=== PATIENT | female | born 1995 | race Caucasian/White ===

== ENCOUNTER 2021-11-11 17:18 | Emergency (ER) | payer OTHER ==
[2021-11-11 18:00] LABS: BASOPHILS # (AUTO) 0.1 10^3/uL (0.0-0.1); BASOPHILS % (AUTO) 1.6 %; EOSINOPHILS # (AUTO) 0.5 10^3/uL (0.0-0.7); EOSINOPHILS % (AUTO) 5.5 %; HCT - HEMATOCRIT 40.4 % (37.0-47.0); HGB - HEMOGLOBIN 14.1 g/dL (12.0-16.0); LYMPHOCYTES # (AUTO) 3.5 10^3/uL (1.5-3.5); LYMPHOCYTES % (AUTO) 38.7 %; MEAN CORPUSCULAR HEMOGLOBIN 30.8 pg (27.0-31.0); MEAN CORPUSCULAR HGB CONC 34.9 g/dL (32.0-36.0); MEAN CORPUSCULAR VOLUME 88.2 fL (81.0-99.0); MEAN PLATELET VOLUME 10.9 fL (7.9-10.8); MONOCYTES # (AUTO) 0.6 10^3/uL (0.0-1.0); NEUTROPHILS # (AUTO) 4.2 10^3/uL (1.5-6.6); PLT - PLATELET COUNT 283 10^3/uL (130-450); RED BLOOD COUNT 4.58 10^6/uL (4.20-5.40); RED CELL DISTRIBUTION WIDTH 12.3 % (12.0-15.0); WHITE BLOOD COUNT 8.9 x10^3/uL (4.8-10.8)
[2021-11-11 18:02] LABS: BILIRUBIN,URINE NEGATIVE (NEGATIVE); GLUCOSE, URINE (UA) NEGATIVE (NEGATIVE); KETONES,URINE (UA) NEGATIVE (NEGATIVE); LEUKOCYTE ESTERASE, URINE NEGATIVE (NEGATIVE); NITRITE,URINE NEGATIVE (NEGATIVE); OCCULT BLOOD,URINE NEGATIVE (NEGATIVE); PROTEIN,URINE NEGATIVE (NEGATIVE); UROBILINOGEN,URINE 0.2 (NORMAL) E.U./dL (NORMAL)
[2021-11-11 18:06] LABS: CLARITY,URINE CLEAR (CLEAR); HCG UR QUAL NEGATIVE
--- NOTE | 2021-11-11 18:17 | ED Physician Documentation ---
History of Present Illness - Stated complaint Stated Complaint: NAUSEA,PELVIC PX - Chief complaint Chief Complaint: Abd Pain - Additonal information Additional information: 26-year-old female presents emergency department for evaluation of acute onset nausea and lower pelvic pain that began today. She reports a last menstrual cycle in April 2020. She is currently 11 months and is breast- feeding and has not resumed her cycles. She did have a positive home test in late September. Subsequently she began to have vaginal bleeding and then had a negative home test. She discussed this with her primary care provider who told her that she was having a miscarriage. There is no further work-up or imaging done. She had been progressing well until today when she developed the pain and nausea. No fevers, dysuria or urgency. G5, Review of Systems Constitutional: denies: Fever, Chills Eyes: reports: Reviewed and negative Nose: reports: Reviewed and negative Throat: reports: Reviewed and negative Cardiac: reports: Reviewed and negative Respiratory: reports: Reviewed and negative GI: reports: Abdominal Pain, Nausea. denies: Vomiting : denies: Dysuria, Frequency, Hesitancy Skin: reports: Reviewed and negative Musculoskeletal: reports: Reviewed and negative Neurologic: reports: Reviewed and negative PD PAST MEDICAL HISTORY - Present Medications Home Medications: Ambulatory Orders Medication Instructions Recorded Confirmed Sertraline [Zoloft] 25 mg PO DAILY 11/11/21 11/11/21 - Allergies Allergies/Adverse Reactions: Allergies Allergy/AdvReac Type Severity Reaction Status Date / Time amoxicillin Allergy Hives Verified 11/11/21 17:41 azithromycin Allergy Hives Verified 11/11/21 17:41 clindamycin Allergy Hives Verified 11/11/21 17:41 Penicillins Allergy Hives Verified 11/11/21 17:41 PD ED PE NORMAL - General General: Alert and oriented X 3, No acute distress, Well developed/nourished - HEENT HEENT: Atraumatic, Ears normal - Neck Neck: Supple, no meningeal sign, No JVD - Cardiac Cardiac: RRR, No murmur, No gallop - Respiratory Respiratory: No respiratory distress, Clear bilaterally - Abdomen Abdomen: Normal bowel sounds, Soft. No: Non tender (I was unable to elicit any tenderness on exam. 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 Eye Opening: Spontaneous Motor: Obeys Commands Verbal: Oriented GCS Score: 15 - Psych Psych: Normal mood Results - Vitals Vitals: Vital Signs - 24 hr 11/11/21 11/11/21 17:30 19:24 Temperature 36.4 C L 36.5 C Heart Rate 75 70 Respiratory 16 16 Rate Blood Pressure 119/69 115/66 O2 Saturation 98 99 Oxygen O2 Source Room air - Labs Labs: Laboratory Tests 11/11/21 11/11/21 11/11/21 17:51 17:55 17:55 WBC 8.9 RBC 4.58 Hgb 14.1 Hct 40.4 MCV 88.2 MCH 30.8 MCHC 34.9 RDW 12.3 Plt Count 283 MPV 10.9 H Neut # (Auto) 4.2 Lymph # (Auto) 3.5 [place] # (Auto) 0.6 Eos # (Auto) 0.5 Baso # (Auto) 0.1 Absolute Nucleated RBC 0.00 Nucleated RBC % 0.0 Sodium 138 Potassium 3.7 Chloride 101 Carbon Dioxide 25 Anion Gap 12.0 BUN 11 Creatinine 0.6 Estimated GFR (MDRD) 122 Glucose 124 H Calcium 9.5 Total Bilirubin 0.2 AST 19 ALT 18 Alkaline Phosphatase 77 Total Protein 7.7 Albumin 4.7 Globulin 3.0 Albumin/Globulin Ratio 1.6 Lipase 30 HCG, Quant Urine Color YELLOW Urine Clarity CLEAR Urine pH 6.0 Ur Specific [place] 1.010 Urine Protein NEGATIVE Urine Glucose (UA) NEGATIVE Urine Ketones NEGATIVE Urine Occult Blood NEGATIVE Urine Nitrite NEGATIVE Urine Bilirubin NEGATIVE Urine Urobilinogen 0.2 (NORMAL) Ur Leukocyte Esterase NEGATIVE Ur Microscopic Review NOT INDICATED Urine Culture Comments NOT INDICATED Urine HCG, Qual NEGATIVE 11/11/21 17:55 WBC RBC Hgb Hct MCV MCH MCHC RDW Plt Count MPV Neut # (Auto) Lymph # (Auto) [place] # (Auto) Eos # (Auto) Baso # (Auto) Absolute Nucleated RBC Nucleated RBC % Sodium Potassium Chloride Carbon Dioxide Anion Gap BUN Creatinine Estimated GFR (MDRD) Glucose Calcium Total Bilirubin AST ALT Alkaline Phosphatase Total Protein Albumin Globulin Albumin/Globulin Ratio Lipase HCG, Quant < 0.60 Urine Color Urine Clarity Urine pH Ur Specific [place] Urine Protein Urine Glucose (UA) Urine Ketones Urine Occult Blood Urine Nitrite Urine Bilirubin Urine Urobilinogen Ur Leukocyte Esterase Ur Microscopic Review Urine Culture Comments Urine HCG, Qual - Rads (name of study) pelvic US Radiology: Final report received (Unremarkable exam. No evidence of torsion. Arterial venous flow are identified.) PD MEDICAL DECISION MAKING - ED course Complexity details: reviewed results, re-evaluated patient, considered differential, d/w patient, d/w family ED course: Well-appearing 26-year-old female presents emergency department for evaluation of sudden onset lower pelvic pain. She was cooking in her kitchen when the pain developed. She had no fevers but did endorse feeling nauseated. She reports that in late September she had what she was told was a miscarriage. She had a positive home test then began having vaginal bleeding. Her doctor told her she was miscarrying but no imaging or labs were done to confirm. Here in the emergency department screening labs electrolytes and hCG are negative. An ultrasound was completed. There is nothing to suggest RPOC or ovarian torsion. At the bedside I was unable to elicit any abdominal tenderness. Given lack of fevers leukocytosis or tenderness my suspicion for acute appendicitis is rather low. No hematuria CVA or flank pain therefore I have lower suspicion for renal or ureter colic. Patient is discharged home in stable condition. Emergent return precautions were discussed for worsening symptoms Departure - Departure Disposition: 01 Home, Self Care Clinical Impression: Lower abdominal pain Condition: Stable Record reviewed to determine appropriate education?: Yes Instructions: ED Abdominal Pain Cause Unkn Fem Ch Comments: Lizzette bailey are seen today in the emergency department for sudden pain in your lower abdomen/pelvic region. Today in the emergency department your screening labs are normal. You do not have an elevated white blood cell count, your electrolytes are normal and you are not today. Because you reported a miscarriage in late September we did do a pelvic ultrasound. The ultrasound was essentially normal. There is no retained products of conception from your miscarriage. Your ovaries are normal without findings to suggest torsion or twisting of the ovaries. I am as you were free of pain at the bedside my suspicion for acute appendicitis is rather low. Your urine showed no signs of infection and there was no blood in the urine. As we discussed I also did not feel that you likely had ureter or renal colic. You can continue to take your usual medications. If you develop sudden severe pain, have uncontrolled vomiting or fevers then please return to the emergency department. At that time we should consider a CT scan
[2021-11-11 18:18] LABS: ALBUMIN 4.7 g/dL (3.2-5.5); ALBUMIN/GLOBULIN RATIO 1.6 (1.0-2.2); BILIRUBIN,TOTAL 0.2 mg/dL (0.2-1.0); CALCIUM 9.5 mg/dL (8.5-10.3); CREATININE 0.6 mg/dL (0.4-1.0); POTASSIUM 3.7 mmol/L (3.5-5.0); TOTAL PROTEIN 7.7 g/dL (6.7-8.2)
--- NOTE | 2021-11-11 19:07 | Ultrasound Report ---
PROCEDURE: Pelvic w/Transvag+Doppler Comp INDICATIONS: miscarriage 10/30 TECHNIQUE: Real-time scanning was performed of the pelvic organs, with image documentation. Additional endovagi nal scanning was necessary due to incomplete visualization of the adnexal and endometrial structures by transabdominal scanning. Doppler interrogation was performed of the ovaries bilaterally. COMPARISON: None. FINDINGS: No pathologic free abdominal or pelvic fluid. Uterus: Uterus is normal in size at 6.6 x 2.9 x 5.4 cm. The endometrium measures 7 mm in combined t hickness. Ovaries: Right ovary measures 3.5 x 1.4 x 2.6 cm, by 6.5 cc. Left ovary measures 1.8 x 1.0 x 2.5 cm, volume 2.4 cc. Normal appearing arterial and venous waveforms are confirmed to each ovary.] IMPRESSION: Unremarkable exam. No evidence of torsion. Arterial venous flow are identified. Reviewed by: Elaine Lan MD on 11/11/2021 7:05 PM PDT Approved by: Elaine Lan MD on 11/11/2021 7:05 PM PDT Station ID: [id number]
[2021-11-11 19:25] VITALS: BP 115/66
== END 2021-11-11 19:59 | disposition home or self-care (01) ==
LOC: ED 17:18
DX: R10.30 Lower abdominal pain, unspecified (principal); R11.0 Nausea
CPT/HCPCS: 36415; 80053; 81001; 81003; 81025; 83690; 84702; 85025; 87086; 93975; 99282; 99284

== ENCOUNTER 2022-12-20 17:30 | Outpatient (CLI) | payer OTHER ==
[2022-12-20 20:52] LABS: BASOPHILS # (AUTO) 0.1 10^3/uL (0.0-0.1); BASOPHILS % (AUTO) 1.6 %; EOSINOPHILS # (AUTO) 0.6 10^3/uL (0.0-0.7); EOSINOPHILS % (AUTO) 6.8 %; HCT - HEMATOCRIT 42.2 % (37.0-47.0); LYMPHOCYTES % (AUTO) 36.9 %; MEAN CORPUSCULAR HEMOGLOBIN 29.4 pg (27.0-31.0); MEAN CORPUSCULAR HGB CONC 33.2 g/dL (32.0-36.0); MEAN CORPUSCULAR VOLUME 88.5 fL (81.0-99.0); MONOCYTES # (AUTO) 0.5 10^3/uL (0.0-1.0); MONOCYTES % (AUTO) 6.7 %; NEUTROPHILS # (AUTO) 3.9 10^3/uL (1.5-6.6); NEUTROPHILS % (AUTO) 47.8 %; PLT - PLATELET COUNT 275 10^3/uL (130-450); RED BLOOD COUNT 4.77 10^6/uL (4.20-5.40); RED CELL DISTRIBUTION WIDTH 13.1 % (12.0-15.0); WHITE BLOOD COUNT 8.1 x10^3/uL (4.8-10.8)
[2022-12-20 20:57] LABS: ALBUMIN/GLOBULIN RATIO 1.6 (1.0-2.2); BILIRUBIN,TOTAL 0.4 mg/dL (0.2-1.0); CREATININE 0.9 mg/dL (0.6-1.3); MAGNESIUM 1.9 mg/dL (1.7-2.3); POTASSIUM 3.9 mmol/L (3.5-4.5); TOTAL PROTEIN 8.1 g/dL (6.4-8.9)
[2022-12-20 21:17] LABS: THYROID STIMULATING HORMONE 3.4 uIU/mL (0.34-5.60)
== END 2022-12-20 17:45 | disposition home or self-care (01) ==
LOC: LAB.N 17:30
PROVIDERS: ATTEND Physician Assistant Medical
DX: R53.83 Other fatigue (principal)
CPT/HCPCS: 36415; 80053; 83735; 84443; 85025

== ENCOUNTER 2023-06-24 20:21 | Emergency (ER) | payer OTHER ==
--- NOTE | 2023-06-24 21:39 | XRAY Report ---
PROCEDURE: Chest 1V INDICATIONS: chest pain TECHNIQUE: One view of the chest was acquired. COMPARISON: None. FINDINGS: Surgical changes and devices: None. Lungs and pleura: No pleural effusions or pneumothorax. Lungs are clear. Mediastinum: Mediastinal contours appear normal. Heart size is normal. Bones and chest wall: No suspicious bony lesions. Overlying soft tissues appear unremarkable. IMPRESSION: No acute cardiopulmonary process. No focal airspace disease. Reviewed by: Jameson Santana MD on 06/24/2023 9:37 PM [facility] Approved by: Jameson Santana MD on 06/24/2023 9:37 PM [facility] Station ID: [id number]
[2023-06-24 21:40] LABS: BASOPHILS # (AUTO) 0.1 10^3/uL (0.0-0.1); BASOPHILS % (AUTO) 1.3 %; EOSINOPHILS # (AUTO) 0.6 10^3/uL (0.0-0.7); EOSINOPHILS % (AUTO) 5.8 %; HCT - HEMATOCRIT 39.7 % (37.0-47.0); HGB - HEMOGLOBIN 13.3 g/dL (12.0-16.0); LYMPHOCYTES # (AUTO) 3.9 10^3/uL (1.5-3.5); LYMPHOCYTES % (AUTO) 35.7 %; MEAN CORPUSCULAR HEMOGLOBIN 29.4 pg (27.0-31.0); MEAN CORPUSCULAR HGB CONC 33.5 g/dL (32.0-36.0); MEAN CORPUSCULAR VOLUME 87.8 fL (81.0-99.0); MEAN PLATELET VOLUME 10.5 fL (7.9-10.8); MONOCYTES # (AUTO) 0.7 10^3/uL (0.0-1.0); MONOCYTES % (AUTO) 6.5 %; NEUTROPHILS # (AUTO) 5.5 10^3/uL (1.5-6.6); NEUTROPHILS % (AUTO) 50.5 %; PLT - PLATELET COUNT 301 10^3/uL (130-450); RED BLOOD COUNT 4.52 10^6/uL (4.20-5.40); RED CELL DISTRIBUTION WIDTH 12.4 % (12.0-15.0); WHITE BLOOD COUNT 10.8 x10^3/uL (4.8-10.8)
[2023-06-24 21:56] LABS: ALBUMIN 4.1 g/dL (3.2-5.5); ALBUMIN/GLOBULIN RATIO 1.4 (1.0-2.2); BILIRUBIN,TOTAL 0.2 mg/dL (0.2-1.0); CALCIUM 9.4 mg/dL (8.5-10.3); CREATININE 0.7 mg/dL (0.6-1.3); POTASSIUM 3.6 mmol/L (3.5-4.5)
[2023-06-24 22:03] LABS: BILIRUBIN,URINE NEGATIVE (NEGATIVE); GLUCOSE, URINE (UA) NEGATIVE (NEGATIVE); KETONES,URINE (UA) NEGATIVE (NEGATIVE); LEUKOCYTE ESTERASE, URINE NEGATIVE (NEGATIVE); NITRITE,URINE NEGATIVE (NEGATIVE); OCCULT BLOOD,URINE NEGATIVE (NEGATIVE); PH,URINE 7.5 PH (5.0-7.5); PROTEIN,URINE NEGATIVE (NEGATIVE); UROBILINOGEN,URINE 0.2 (NORMAL) E.U./dL (NORMAL)
[2023-06-24 22:05] LABS: CLARITY,URINE CLEAR (CLEAR); HCG UR QUAL NEGATIVE
--- NOTE | 2023-06-24 22:09 | ED Physician Documentation ---
History of Present Illness - Stated complaint Stated Complaint: HIGH BP/BENITEZ/CHEST PX - Chief complaint Chief Complaint: Cardiac - History obtained from History obtained from: Patient - Additonal information Additional information: 27-year-old female with history of anxiety presents by private vehicle from home for 2 to 3 hours of chest tightness, clammy sensation, headache, nausea. Patient was sitting at home when symptoms began and have been persistent since onset. Nothing seems to make it better or worse. Patient states that she took her blood pressure when symptoms began and it was 130 systolic, which is high for her. Due to her history of preeclampsia patient was concerned and decided to present for evaluation. Chest tightness and nausea are still present, headache has somewhat abated. Denies shortness of breath, blurred vision, worst headache of life, abdominal pain, dysuria, hematuria, any other complaints at this time.Uncertain of possibility of . Review of Systems Constitutional: denies: Fever, Chills Cardiac: reports: Chest pain / pressure. denies: Palpitations, Calf pain Respiratory: denies: Dyspnea, Cough, Wheezing GI: reports: Nausea. 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 - Present Medications Home Medications: Ambulatory Orders Medication Instructions Recorded Confirmed ARIPiprazole [Abilify Mycite] 2 mg PO DAILY 06/24/23 06/24/23 - Allergies Allergies/Adverse Reactions: Allergies Allergy/AdvReac Type Severity Reaction Status Date / Time amoxicillin Allergy Hives Verified 06/24/23 20:48 azithromycin Allergy Hives Verified 06/24/23 20:48 clindamycin Allergy Hives Verified 06/24/23 20:48 Penicillins Allergy Hives Verified 06/24/23 20:48 - Social History Does the pt smoke?: No Smoking Status: Never smoker Does the pt drink ETOH?: Yes Does the pt have substance abuse?: No - Immunizations Immunizations are current?: Yes - POLST Patient has POLST: No PD ED PE NORMAL - Vitals Vital signs reviewed: Yes - General General: Alert and oriented X 3, No acute distress, Well developed/nourished - Cardiac Cardiac: RRR, Strong equal pulses - Respiratory Respiratory: No respiratory distress, Clear bilaterally - Abdomen Abdomen: Soft, Non tender, Non distended - Derm Derm: Normal color, Warm and dry, No rash - Extremities Extremities: No deformity, No tenderness to palpate, Normal ROM s pain, No edema - Neuro Neuro: Alert and oriented X 3, 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 Relevant findings are: Rate: Rate (enter#) (99) Rhythm: NSR [place]: Normal Intervals: Normal TN QRS: Normal Ischemia: Normal ST segments - Labs Labs: Laboratory Tests 06/24/23 06/24/23 06/24/23 21:33 21:33 21:33 WBC 10.8 RBC 4.52 Hgb 13.3 Hct 39.7 MCV 87.8 MCH 29.4 MCHC 33.5 RDW 12.4 Plt Count 301 MPV 10.5 Neut # (Auto) 5.5 Lymph # (Auto) 3.9 H [place] # (Auto) 0.7 Eos # (Auto) 0.6 Baso # (Auto) 0.1 Absolute Nucleated RBC 0.00 Nucleated RBC % 0.0 Sodium 136 Potassium 3.6 Chloride 104 Carbon Dioxide 24 Anion Gap 8.0 BUN 10 Creatinine 0.7 Estimated GFR (MDRD) 101 Glucose 162 H Calcium 9.4 Total Bilirubin 0.2 AST 12 ALT 13 Alkaline Phosphatase 67 Troponin I High Sens < 2.3 L Total Protein 7.0 Albumin 4.1 Globulin 2.9 Albumin/Globulin Ratio 1.4 Urine Color Urine Clarity Urine pH Ur Specific [place] Urine Protein Urine Glucose (UA) Urine Ketones Urine Occult Blood Urine Nitrite Urine Bilirubin Urine Urobilinogen Ur Leukocyte Esterase Ur Microscopic Review Urine Culture Comments Urine HCG, Qual 06/24/23 21:53 WBC RBC Hgb Hct MCV MCH MCHC RDW Plt Count MPV Neut # (Auto) Lymph # (Auto) [place] # (Auto) Eos # (Auto) Baso # (Auto) Absolute Nucleated RBC Nucleated RBC % Sodium Potassium Chloride Carbon Dioxide Anion Gap BUN Creatinine Estimated GFR (MDRD) Glucose Calcium Total Bilirubin AST ALT Alkaline Phosphatase Troponin I High Sens Total Protein Albumin Globulin Albumin/Globulin Ratio Urine Color YELLOW Urine Clarity CLEAR Urine pH 7.5 Ur Specific [place] 1.015 Urine Protein NEGATIVE Urine Glucose (UA) NEGATIVE Urine Ketones NEGATIVE Urine Occult Blood NEGATIVE Urine Nitrite NEGATIVE Urine Bilirubin NEGATIVE Urine Urobilinogen 0.2 (NORMAL) Ur Leukocyte Esterase NEGATIVE Ur Microscopic Review NOT INDICATED Urine Culture Comments NOT INDICATED Urine HCG, Qual NEGATIVE PD Medical Decision Making - ED course Complexity details: reviewed results, re-evaluated patient, considered differential, d/w patient ED course: Well-appearing patient with 2 to 3 hours of symptoms. EKG is normal sinus rhythm without concerning findings. Troponin undetectable, electrolytes within normal limits, no leukocytosis, chest x-ray unremarkable. Patient resting comfortably in bed, states she had an episode where her headache, nausea, chest tightness recurred, however it is improved. Uncertain etiology of patient's symptoms. PCP follow-up advised. Departure - Departure Disposition: 01 Home, Self Care Clinical Impression: Chest tightness, Nausea Condition: Stable Instructions: ED Chest Pain Atypical Unkn Cause Comments: Your labs and X ray imaging was normal today. There is no evidence of heart attack, pneumonia, or urinary infection. You may continue to monitor your vitals at home. I recommend following up with your primary care physician. Forms: PCP List Discharge Date/Time: 06/24/23 22:32
[2023-06-24] MEDS ORDERED: ONDANSETRON ODT 4 MG TABLET TL STA (22:25)
[2023-06-24 22:39] VITALS: BP 122/76; O2SAT 98
== END 2023-06-24 22:32 | disposition home or self-care (01) ==
LOC: ED 20:21
DX: R07.89 Other chest pain (principal); R51.9 Headache, unspecified; R11.0 Nausea
CPT/HCPCS: 36415; 80053; 81001; 81003; 81025; 84484; 85025; 87086; 93005; 99283; 99284

== ENCOUNTER 2023-10-21 15:04 | Outpatient (CLI) | payer OTHER ==
--- NOTE | 2023-10-21 17:56 | SLEEP CARE CONSULTATION ---
Information from patient questionnaire entered by Tiana Churchill. I have reviewed and concur with the information entered by Tiana Churhcill. This document represents the service I personally performed and the decisions made by me, Lexus Edge MD, [facility]. History of Present Illness Service Date and Time: 10/21/2023 1504 Reason for Visit: New patient Chief Complaint: reports: Insomnia, Unrefreshed sleep, Snoring, Excessive daytime sleepiness, Fatigue Date of Onset: 2YRS Usual bedtime: 2030 Time it takes to fall asleep: 1-2 Snores at night: Yes Observed to quit breathing while asleep: No Sleeps alone due to snoring: No Number of times waking at night: 2 Reasons for waking at night: reports: Bathroom Toss, Turn, or Twitch while sleeping: Yes Recalls having dreams: Yes Usually gets out of bed at: 0600 Feels refreshed in the morning: No Morning headache: Yes Sleepy or fatigued during the day: Yes Ever fallen asleep while driving: Yes Dreams during day naps: No Prior sleep studies: No Additional HPI information: I have the pleasure of seeing Ms. Joyner today regarding the possibility of her having obstructive sleep apnea. As you know, she is a 28-year-old lady who complains of insomnia, fatigue, and excessive daytime sleepiness. The patient tells me that she normally goes to bed around 8:30 pm, and it takes her approximately 1 2 hours to fall asleep. She has been told that she snores loudly and irregularly at night. She has never been observed to stop breathing in her sleep. Her sleeps in the same bed. He wears a CPAP. She can recall waking up on the average of 2 times during the night. Most of the time she wakes up because of having to use the bathroom. She has awakened occasionally because of her own snoring, choking, and having to gasp for air. There is a lot of tossing and turning in her sleep. No somniloquy (sleep talking) or somnambulism (sleep walking). Generally, she can recall having dreams. In the morning she usually gets up out of the bed around 6 a.m. not feeling refreshed nor rested. She usually has a morning headache that goes away in about 2 hours. During the day she complains of feeling sleepy and fatigued. Her score on [place] Sleepiness Scale is 15 out of 24. She has fallen asleep while driving and has gone out of the andre. She usually does not take naps during the day. She reports having sleep paralysis. She complains of restless leg syndrome. She reports having impaired concentration during the day. 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 Patient is and lives in [place]. Have you smoked in the past 12 months: No Alcohol use: Yes Alcohol amount and frequency: 1 VERY LITTLE Caffeine use: Yes Caffeine amount and frequency: 3-4 CANS EVERYDAY Family History Family history of sleep disordered breathing: Yes Family Hx Sleep Apnea: Mother: Snoring, Father: Snoring Allergies and Home Medications Known drug allergies: No Drug allergies reviewed: Yes Home medication list reviewed: Yes Allergy and home medication list: Allergies amoxicillin Allergy (Verified 10/21/23 08:09) Hives azithromycin Allergy (Verified 10/21/23 08:09) Hives clindamycin Allergy (Verified 10/21/23 08:09) Hives Penicillins Allergy (Verified 10/21/23 08:09) Hives Review of Systems Weight gain over past 5 years: 40 Cardiovascular: reports: palpitations, chest pain, irregular heart rate or pulse Respiratory: denies: shortness of breath, wheeze, sputum production, chronic cough, other Gastrointestinal: reports: heartburn Urinary: denies: incontinence, frequency, urgency, impotence, other Neurological: denies: headaches, seizure, head trauma, disorientation, speech dysfunction, gait or balance problems, fainting or unconsciousness, other Psychiatric: reports: anxiety, depression Ear/Nose/Throat: reports: wisdom teeth removed Endocrine: reports: sluggishness, too hot or cold Musculoskeletal: denies: joint pain, neck pain, back pain, joint swelling, muscle pain or cramping, mobility problems, other Immunologic: reports: sneezing, itching Physical Exam Vital signs obtained and entered by: TIANA Lopez MA Blood Pressure: 124/76 (RIGHT ARM) Cuff size: regular Heart Rate: 85 O2 Saturation: 96 Height: 5 ft Weight: 158 lb 3.2 oz Body Mass Index: 30.9 BMI Classification: Obese Neck circumference: 13.5 Mood/affect: Normal HEENT: No craniofacial malformation Nostrils: partially obstructed Turbinates: normal Septum: deviated right Mouth and throat: narrow oropharynx Soft palate: long Hard palate: normal Uvula: normal Uvula visualization: 25% Mallampati Class III Tonsils: small Chin and jaw: normal size and position Neck: normal w/o lymphadenopathy or thyromegaly Heart: regular rate and rhythm Lungs: clear bilaterally Extremities: no edema or clubbing Neurologic: intact Impression and Plan IMPRESSION: 1. Suspected sleep apnea, based on loud snoring, unrefreshed sleep, morning headache, and daytime hypersomnolence. Narrow oropharynx and obesity are common predisposing factors for obstructive sleep apnea-hypopnea syndrome. I recommend proceeding to polysomnography to confirm the diagnosis and to assess severity. If she has significant sleep disordered breathing, a manual CPAP titration study will also be performed to find the optimal treatment pressure. I informed the patient of what the sleep studies involve and after some discussion, she agreed to proceed. 2. Insomnia, due to excessive time spent in bed of 9.5 hours in bed each night. The patient also sleeps in the recliner prior to going to bed. She was advised to delay her bedtime until 10 pm which is the same time her goes to bed. She is to avoid sleeping outside the bedroom. Plan: 1. Schedule polysomnography +/- manual CPAP titration study and return in 1 to 2 weeks after the study to discuss result and initiate therapy. 2. Avoid long distance driving or when feeling sleepy. 3. Avoid alcohol, sedative and muscle relaxant around bedtime. 4. Attempt to lose weight. 5. Maintain a regular wake up time and spend no more than 8 hours in bed at night. Avoid naps. Follow up with Sleep Care in: 1-2 months Visit Type: In Office Time Spent with Patient (minutes): 15 Provider Statement: I spent 100% of the Face to Face Visit with the patient with greater than 50% spent counseling the patient and coordination of care.
[2023-10-21 18:05] VITALS: BP 124/76; O2SAT 96
== END 2023-10-21 15:05 | disposition home or self-care (01) ==
LOC: SC 15:04
PROVIDERS: ATTEND Internal Medicine Pulmonary Disease
DX: G47.00 Insomnia, unspecified (principal); R06.83 Snoring; G47.10 Hypersomnia, unspecified; R53.83 Other fatigue; E66.9 Obesity, unspecified; Z68.30 Body mass index [BMI] 30.0-30.9, adult; R51.9 Headache, unspecified; F32.A Depression, unspecified
CPT/HCPCS: 99202; 99212

== ENCOUNTER 2023-11-02 20:46 | Outpatient (CLI) | payer OTHER | END 2023-11-02 20:47 | disposition home or self-care (01) | LOC: SC 20:46 | PROVIDERS: ATTEND Internal Medicine Pulmonary Disease | DX: G47.33 Obstructive sleep apnea (adult) (pediatric) (principal); E66.9 Obesity, unspecified; Z68.30 Body mass index [BMI] 30.0-30.9, adult | CPT/HCPCS: 95810 ==

== ENCOUNTER 2023-11-14 09:04 | Outpatient (CLI) | payer OTHER ==
--- NOTE | 2023-11-14 09:39 | Sleep Patient Instructions ---
Sleep Center Visit Summary - Patient Visit Information Reason for Visit: Sleep study follow-up - Patient Instructions Instructions Attached: CPAP Additional Instructions: You are being started on CPAP therapy with pressure setting at 4-15 cmH2O. You will need to call the sleep care office to set up your follow up once you have your CPAP machine to check compliance and response to therapy at that time. You may call the office with any concerns about pressure feeling too low or too much for adjustment, if needed. You should contact DME supplier for any questions or concerns about mask or equipment. Please call office to schedule a follow up appointment in the sleep care office one month after obtaining new device. - Clinic Information Contact: [facility] [address] [place] [address] [email or web address] T: [phone]
--- NOTE | 2023-11-14 09:41 | SLEEP CARE CONSULTATION ---
Information from patient questionnaire entered by Tiana Churchill. I have reviewed and concur with the information entered by Tiana Churchill. This document represents the service I personally performed and the decisions made by , Seda Lopez ARNP. History of Present Illness Service Date and Time: 11/14/2023 09 Initial [place] Sleepiness Scale score: 15 (10/21/23) Current [place] Sleepiness Scale score: 16 (11/14/23) Additional HPI information: [facility] [place] returns for follow up and results of the recently performed polysomnography. The sleep study done on 11/02/23 showed mild obstructive sleep apnea with an average AHI of 8.5 and lidia oxygen saturation of 82%. I explained the pathophysiology behind obstructive sleep apnea. We then spent quite a bit of time discussing different treatment options. For mild obstructive sleep apnea, surgery and oral appliance are alternatives to nasal CPAP therapy but in moderate or severe cases, nasal CPAP is the most effective and reliable treatment. Because apnea is primarily in supine position, then positional management therapy could be effective. Methods discussed such as positioning with pillows, using a T-shirt with tennis balls in the back or commercial products that have a pillow format on back to prevent supine sleep. I reviewed the impact of weight changes on sleep apnea and strongly recommended losing weight. After some discussion, the patient opted to go with the nasal CPAP therapy. Nasal autoCPAP set at 4-15 cmH20 will be ordered with rationale explained. A manual titration study will be ordered if unable to find optimal pressure with office adjustmen ts. I explained how CPAP machine works and what to expect when using the machine. Using CPAP every night in order to get used to it was emphasized. Patient advised to put CPAP mask on before getting into bed so as not to fall asleep without CPAP. To assist acclimation to CPAP use, it could also be used for a short time during day while reading or watching TV. The patient was instructed to call the CPAP supplier to discuss any mechanical problem that may occur. If the mask given is uncomfortable or is difficult to keep on through the night even with adjustment, contact the CPAP supplier as many will replace with another mask style if notified before 30 days. If snoring or perceives is not getting enough air or too much air from the machine, notify this office. Patient does not drink alcohol. Patient was cautioned about risks of drowsy driving until sleepiness symptoms resolve. Sleep Study - Results Type of Sleep Study: Polysomnography (COMPLETED 11/02/23) Prior sleep studies: No Polysomnography/Home Sleep Study results: IMPRESSION: The quality of the study is good. The patient had normal sleep efficiency. The sleep architecture was also normal. Respiratory monitoring showed mild obstructive sleep apnea- hypopnea (AHI = 8.5) associated with oxyhemoglobin desaturation and mild hypoxia (lidia oxygen saturation of 82%) but not sleep fragmentation. The respiratory events occurred predominantly during supine sleep (supine AHI = 11.5; non-supine = 5.78). Snore was light in intensity. There was no significant periodic leg movement of sleep. Cardiac rhythm was normal sinus rhythm without significant arrhythmia. No abnormal behavior (parasomnia) observed during the night. Allergies and Home Medications Known drug allergies: Yes (as listed) Drug allergies reviewed: Yes Home medication list reviewed: Yes (no changes) Allergy and home medication list: Allergies amoxicillin Allergy (Verified 10/21/23 15:24) Hives azithromycin Allergy (Verified 10/21/23 15:24) Hives clindamycin Allergy (Verified 10/21/23 15:24) Hives Penicillins Allergy (Verified 10/21/23 15:24) Hives Review of Systems Review of systems same as previous: Yes (NO CHANGE) Physical Exam Vital signs obtained and entered by: TIANA Lopez MA Blood Pressure: 129/77 (RIGHT ARM) Cuff size: regular Heart Rate: 81 O2 Saturation: 96 Height: 5 ft Weight: 162 lb 3.2 oz Body Mass Index: 31.6 BMI Classification: Obese Impression and Plan 1. Obstructive Sleep Apnea-Hypopnea Syndrome, mild, with lowest oxygen saturation of 82%. Obviously this is the cause of the patients symptoms of unrefreshed sleep, and excessive daytime sleepiness. Positive pressure therapy could benefit fibromyalgia, anxiety and depression. As mentioned above, the patient will be started on nasal autoCPAP therapy with pressure set at 4-15 cmH2 O. A manual titration study will be completed if unable to find optimal treatment pressure with office adjustments. Compliance guidelines also reviewed. A copy of compliance guidelines will be given for reference at check out. Because the apnea is more severe supine, I instructed to avoid sleeping supine using pillow positioning until able to start CPAP use. 2. Hypoxemia, mild, with a lidia oxygen saturation of 82% and 4.9 minutes spent under 90%. The baseline oxygen saturation was normal with an average oxygen saturation of 92%. 3. Obesity, unspecified. Currently patients BMI is 31.6. Obesity increases the risk of apnea, CPAP pressure requirements and overall health risks especially cardiovascular and diabetes. Thus patient is advised to lose weight. * Nasal auto CPAP therapy, pressure at 4-15 cm H2O. * Attempt to lose weight. * Avoid alcohol consumption near bedtime. * Avoid supine sleep until using CPAP. * The patient is again cautioned about driving until sleepiness completely resolves. * Return one month after CPAP obtained. I will assess response to therapy and compliance at that time. Counseling Topics: Sleeping position, Weight loss health impact Prescriptions: Auto CPAP Plan: start cpap and compliance followup Visit Type: In Office Time Spent with Patient (minutes): 20 Provider Statement: I spent 100% of the Face to Face Visit with the patient with greater than 50% spent counseling the patient and coordination of care.
[2023-11-14 09:45] VITALS: BP 129/77; O2SAT 96
== END 2023-11-14 09:05 | disposition home or self-care (01) ==
LOC: SC 09:04
PROVIDERS: ATTEND Nurse Practitioner Family
DX: G47.33 Obstructive sleep apnea (adult) (pediatric) (principal); E66.9 Obesity, unspecified; Z68.31 Body mass index [BMI] 31.0-31.9, adult
CPT/HCPCS: 99212; 99213

== ENCOUNTER 2023-12-26 08:00 | Outpatient (CLI) | payer OTHER | END 2023-12-26 23:59 | disposition home or self-care (01) | LOC: LAB 08:00 | PROVIDERS: ATTEND Emergency Medicine | DX: N12 Tubulo-interstitial nephritis, not specified as acute or chronic (principal) | CPT/HCPCS: 87086 ==

== ENCOUNTER 2024-01-30 07:34 | Outpatient (CLI) | payer OTHER ==
[2024-01-30 08:11] LABS: BASOPHILS % (AUTO) 1.5 %; EOSINOPHILS % (AUTO) 5.4 %; HCT - HEMATOCRIT 42.9 % (37.0-47.0); HGB - HEMOGLOBIN 14.7 g/dL (12.0-16.0); LYMPHOCYTES % (AUTO) 30.6 %; MEAN CORPUSCULAR HEMOGLOBIN 30.1 pg (27.0-31.0); MEAN CORPUSCULAR HGB CONC 34.3 g/dL (32.0-36.0); MEAN CORPUSCULAR VOLUME 87.7 fL (81.0-99.0); MEAN PLATELET VOLUME 10.9 fL (7.9-10.8); MONOCYTES % (AUTO) 6.2 %; NEUTROPHILS % (AUTO) 56.1 %; PLT - PLATELET COUNT 285 10^3/uL (130-450); RED BLOOD COUNT 4.89 10^6/uL (4.20-5.40); WHITE BLOOD COUNT 8.4 x10^3/uL (4.8-10.8)
[2024-01-30 08:17] LABS: % IRON SATURATION 19 % (20-50); ALBUMIN 4.6 g/dL (3.2-5.5); ALBUMIN/GLOBULIN RATIO 1.9 (1.0-2.2); ALKALINE PHOSPHATASE 59 IU/L (42-121); ALT ALANINE AMINOTRANSFERASE 15 IU/L (10-60); AST ASPARTATE AMINOTRANSFERASE 14 IU/L (10-42); BILIRUBIN,TOTAL 0.5 mg/dL (0.2-1.0); BUN - BLOOD UREA NITROGEN 8 mg/dL (6-20); CALCIUM 9.5 mg/dL (8.5-10.3); CARBON DIOXIDE - CO2 24 mmol/L (21-32); CHLORIDE 102 mmol/L (101-111); CHOL/HDL RATIO 3.9 (<4.4); CHOLESTEROL 164 mg/dL; CREATININE 0.6 mg/dL (0.6-1.3); GFR - MDRD 120 (>89); GLUCOSE 106 mg/dL (74-104); HDL CHOLESTEROL 42 mg/dL; IRON 68 ug/dL (50-212); LDL CHOLESTEROL,CALCULATED 92 mg/dL; LDL/HDL RATIO 2.2 (<4.4); POTASSIUM 3.9 mmol/L (3.5-4.5); SODIUM 135 mmol/L (135-145); TOTAL IRON BINDING CAPACITY 357 ug/dL (250-450); TRANSFERRIN 255 mg/dL (203-362); TRIGLYCERIDES 151 mg/dL; VLDL CHOLESTEROL 30 mg/dL
[2024-01-30 08:26] LABS: THYROID STIMULATING HORMONE 4.31 uIU/mL (0.34-5.60)
[2024-01-30 08:34] LABS: FERRITIN 34.4 ng/mL (11.0-306.8)
[2024-01-30 10:01] LABS: ABNORMAL LYMPHS % (MANUAL) 0 %
[2024-01-30 10:27] LABS: ESTIMATED AVERAGE GLUCOSE 103 mg/dL (70-100); HEMOGLOBIN A1c% 5.2 % (4.27-6.07)
[2024-01-30 10:31] LABS: BAND NEUTROPHILS % (MANUAL) 3 %; EOSINOPHILS # (MANUAL) 0.4 10^3/uL (0-0.7); LYMPHOCYTES # (MANUAL) 3.8 10^3/uL (1.5-3.5); LYMPHOCYTES % (MANUAL) 26 %; MONOCYTES # (MANUAL) 0.5 10^3/uL (0.0-1.0); NEUTROPHILS # (MANUAL) 3.7 10^3/uL (1.5-6.6); REACTIVE LYMPHS % (MANUAL) 19 %
[2024-01-30 10:32] LABS: DIFFERENTIAL COMMENT MANUAL DIFFERENTIAL; RBC MORPHOLOGY (MULTIPLE) 2+ ANISOCYTOSIS (NORMAL)
== END 2024-01-30 07:35 | disposition home or self-care (01) ==
LOC: LAB 07:34
PROVIDERS: ATTEND Nurse Practitioner Family
DX: F33.1 Major depressive disorder, recurrent, moderate (principal)
CPT/HCPCS: 36415; 80053; 80061; 80164; 82306; 82607; 82728; 82746; 83036; 83540; 83721; 84436; 84439; 84443; 84466; 84480; 85025